=== PATIENT | female | born 1960 | race Caucasian/White ===

== ENCOUNTER 2018-01-24 07:44 | Outpatient (CLI) | payer OTHER ==
[~2018-01-24 07:44] MED LIST: BARIATRIC ADVANTAGE PO; CALC-1050 PO; CYAN100087 SL; DIPH25CA83 PO; ERGO500014 PO; ESTR0.6261 PO; LOPE1TAB46 PO; LOSA100T28 PO; MULT-227 PO; OMEP-50 PO; OXYB5TAB82 PO; POTA20TA39 PO; PYRI100T2 PO; SOTA80TA69 PO
[2018-01-24 08:23] LABS: BASOPHILS % (AUTO) 0.4 % (0-1); EOSINOPHILS # (AUTO) 0.2 X10'3 (0-0.9); EOSINOPHILS % (AUTO) 2.9 % (0-6); HEMATOCRIT 40.7 % (35.0-45.0); HEMOGLOBIN 13.9 g/dl (12.0-16.0); LYMPHOCYTES # (AUTO) 1.3 X10'3 (1.1-4.8); LYMPHOCYTES % (AUTO) 23.9 % (21-51); MEAN CORPUSCULAR HEMOGLOBIN 32.8 PG (27.0-31.0); MEAN CORPUSCULAR HGB CONC 34.1 % (33.0-36.5); MEAN CORPUSCULAR VOLUME 96.2 FL (78-98); MEAN PLATELET VOLUME 8.1 FL (7.4-10.4); MONOCYTES # (AUTO) 0.4 X10'3 (0-0.9); MONOCYTES % (AUTO) 7.4 % (2-12); NEUTROPHILS # (AUTO) 3.7 X10'3 (1.8-7.7); NEUTROPHILS % (AUTO) 65.4 % (42-75); PLATELET COUNT 276 X10'3 (140-440); RED BLOOD COUNT 4.23 X10'6 (4.20-5.60); WHITE BLOOD COUNT 5.7 X10'3 (4.5-11.0)
[2018-01-24 08:51] LABS: ALANINE AMINOTRANSFERASE 53 U/L (12-78); ALBUMIN 3.5 G/DL (3.4-5.0); ALBUMIN/GLOBULIN RATIO 1.1 (1.1-1.5); ALKALINE PHOSPHATASE 82 IU/L (46-116); ANION GAP 10 (8-16); ASPARTATE AMINO TRANSFERASE 25 U/L (10-37); BLOOD UREA NITROGEN 11 MG/DL (7-18); BUN/CREATININE RATIO 14.7 (6.6-38.0); CALCIUM 8.9 MG/DL (8.5-10.1); CHLORIDE 112 MMOL/L (99-107); CHOL/HDL RATIO 2.7 (0.00-4.99); CHOLESTEROL 92 MG/DL (0-200); CREATININE 0.75 MG/DL (0.40-0.90); GLUCOSE 80 MG/DL (70-104); HDL CHOLESTEROL 34 MG/DL (35-60); LDL CHOLESTEROL 47 MG/DL (50-100); POTASSIUM 4.2 MMOL/L (3.5-5.1); SODIUM 143 MMOL/L (135-145); TOTAL CARBON DIOXIDE 20.7 MMOL/L (24-32); TOTAL PROTEIN 6.6 G/DL (6.4-8.2); TRIGLYCERIDES 61 MG/DL (20-135); eGFR 79 ML/MIN
[2018-01-24 09:09] LABS: BILIRUBIN,TOTAL 0.8 MG/DL (0.1-1.0)
[2018-01-25 09:32] LABS: VITAMIN D, 25-HYDROXY 63.5 ng/mL (30.0-100.0)
== END 2018-01-24 23:59 | disposition home or self-care (01) ==
LOC: LAB 07:44
PROVIDERS: ATTEND Specialist
DX: N20.9 Urinary calculus, unspecified (principal); E87.6 Hypokalemia; K90.89 Other intestinal malabsorption; Z98.84 Bariatric surgery status
CPT/HCPCS: 36415; 74018; 80053; 80061; 82306; 82607; 85025

== ENCOUNTER 2018-09-04 07:52 | Outpatient (CLI) | payer OTHER ==
[~2018-09-04 07:52] MED LIST changes: +LOSA100T15 PO; -LOSA100T28 PO; -SOTA80TA69 PO; +SOTA80TA73 PO
[2018-09-04 09:20] LABS: BASOPHILS % (AUTO) 0.6 % (0-1); EOSINOPHILS # (AUTO) 0.1 X10'3 (0-0.9); EOSINOPHILS % (AUTO) 2.3 % (0-6); HEMATOCRIT 42.7 % (35.0-45.0); HEMOGLOBIN 14.1 g/dl (12.0-16.0); LYMPHOCYTES # (AUTO) 1.7 X10'3 (1.1-4.8); LYMPHOCYTES % (AUTO) 32.2 % (21-51); MEAN CORPUSCULAR VOLUME 96.8 FL (78-98); MEAN PLATELET VOLUME 8.6 FL (7.4-10.4); MONOCYTES # (AUTO) 0.4 X10'3 (0-0.9); MONOCYTES % (AUTO) 6.9 % (2-12); PLATELET COUNT 307 X10'3 (140-440); RED BLOOD COUNT 4.41 X10'6 (4.20-5.60); RED CELL DISTRIBUTION WIDTH 13.6 % (11.5-14.5); WHITE BLOOD COUNT 5.2 X10'3 (4.5-11.0)
[2018-09-04 09:21] LABS: ALBUMIN 3.6 G/DL (3.4-5.0); ANION GAP 6 (8-16); BILIRUBIN,TOTAL 0.4 MG/DL (0.1-1.0); BLOOD UREA NITROGEN 15 MG/DL (7-18); BUN/CREATININE RATIO 17.6 (6.6-38.0); CHLORIDE 109 MMOL/L (99-107); CREATININE 0.85 MG/DL (0.40-0.90); GLUCOSE 85 MG/DL (70-104); POTASSIUM 4.2 MMOL/L (3.5-5.1); SODIUM 144 MMOL/L (135-145); TOTAL CARBON DIOXIDE 28.8 MMOL/L (24-32); eGFR 68 ML/MIN
[2018-09-04 09:22] LABS: ALANINE AMINOTRANSFERASE 32 U/L (12-78); ALBUMIN/GLOBULIN RATIO 1.1 (1.1-1.5); ALKALINE PHOSPHATASE 74 IU/L (46-116); ASPARTATE AMINO TRANSFERASE 22 U/L (10-37)
[2018-09-05 05:24] LABS: VITAMIN D, 25-HYDROXY 66.6 ng/mL (30.0-100.0)
== END 2018-09-04 23:59 | disposition home or self-care (01) ==
LOC: LAB 07:52
PROVIDERS: ATTEND Specialist
DX: I10 Essential (primary) hypertension (principal); E55.9 Vitamin D deficiency, unspecified; K90.89 Other intestinal malabsorption; E87.6 Hypokalemia
CPT/HCPCS: 36415; 80053; 82306; 82607; 85025

== ENCOUNTER 2018-12-11 09:24 | Outpatient (CLI) | payer OTHER ==
[~2018-12-11 09:24] MED LIST changes: -LOSA100T15 PO; +LOSA100T57 PO
== END 2018-12-11 23:59 | disposition home or self-care (01) ==
LOC: CARD DIAG 09:24
PROVIDERS: ATTEND Internal Medicine Cardiovascular Disease
DX: I08.1 Rheumatic disorders of both mitral and tricuspid valves (principal); I48.91 Unspecified atrial fibrillation; I10 Essential (primary) hypertension; Z98.890 Other specified postprocedural states; Z88.0 Allergy status to penicillin; Z88.5 Allergy status to narcotic agent; Z91.040 Latex allergy status
CPT/HCPCS: 93306

== ENCOUNTER 2019-04-22 14:29 | Inpatient (IN) | payer OTHER ==
[~2019-04-22] VITALS: Ht 167.6 cm; Wt 72.7 kg
[2019-04-22] MEDS ORDERED: ondansetron/PF 4mg/2ml inj IV ONE (14:45)
[2019-04-22] MEDS ORDERED: normal saline 1000ML IV soln IVB ONE ×2 (14:45→18:10)
[2019-04-22] MEDS ORDERED: ketorolac trometh. 30mg/ml inj. IV ONE (14:45)
[2019-04-22] MEDS: morphine 4 MG/ML inj SYRINge IV PRN ×2 (15:03→17:07)
[2019-04-22 15:09] LABS: BASOPHILS # (AUTO) 0.1 X10'3 (0-0.2); BASOPHILS % (AUTO) 1.1 % (0-1); EOSINOPHILS # (AUTO) 0.1 X10'3 (0-0.9); HEMATOCRIT 43.5 % (35.0-45.0); HEMOGLOBIN 14.5 g/dl (12.0-16.0); LYMPHOCYTES # (AUTO) 2.3 X10'3 (1.1-4.8); LYMPHOCYTES % (AUTO) 39.6 % (21-51); MEAN CORPUSCULAR HEMOGLOBIN 32.7 PG (27.0-31.0); MEAN CORPUSCULAR HGB CONC 33.3 g/dL (33.0-36.5); MEAN CORPUSCULAR VOLUME 98.1 FL (78-98); MEAN PLATELET VOLUME 8.3 FL (7.4-10.4); MONOCYTES # (AUTO) 0.4 X10'3 (0-0.9); MONOCYTES % (AUTO) 6.8 % (2-12); NEUTROPHILS # (AUTO) 2.9 X10'3 (1.8-7.7); NEUTROPHILS % (AUTO) 50.5 % (42-75); PLATELET COUNT 272 X10'3 (140-440); RED BLOOD COUNT 4.43 X10'6 (4.20-5.60); RED CELL DISTRIBUTION WIDTH 13.3 % (11.5-14.5); WHITE BLOOD COUNT 5.8 X10'3 (4.5-11.0)
[2019-04-22 15:23] LABS: ALANINE AMINOTRANSFERASE 33 U/L (12-78); ALBUMIN 3.6 G/DL (3.4-5.0); ALKALINE PHOSPHATASE 80 IU/L (46-116); ANION GAP 10 (8-16); ASPARTATE AMINO TRANSFERASE 20 U/L (10-37); BILIRUBIN,TOTAL 0.4 MG/DL (0.1-1.0); BLOOD UREA NITROGEN 13 MG/DL (7-18); BUN/CREATININE RATIO 15.9 (6.6-38.0); CALCIUM 9.1 MG/DL (8.5-10.1); CHLORIDE 111 MMOL/L (99-107); CREATININE 0.82 MG/DL (0.40-0.90); GLUCOSE 120 MG/DL (70-104); LIPASE 234 U/L (73-393); POTASSIUM 3.9 MMOL/L (3.5-5.1); SODIUM 144 MMOL/L (135-145); TOTAL CARBON DIOXIDE 22.8 MMOL/L (24-32); TOTAL PROTEIN 7.1 G/DL (6.4-8.2); eGFR 71 ML/MIN
[2019-04-22] MEDS ORDERED: normal saline 1000ml 1,000 ML IV ONE (16:30)
[2019-04-22 18:59] LABS: CLARITY,URINE SLIGHTLY CLOUDY (Clear); COLOR,URINE YELLOW (Yellow); GLUCOSE, URINE NEGATIVE (Neg); KETONES,URINE NEGATIVE (Neg); LEUKOCYTE ESTERASE ,URINE SMALL (Neg); NITRITES, URINE NEGATIVE (Neg); OCCULT BLOOD,URINE MODERATE (Neg); PH,URINE 5.5 (4.8-8.0); PROTEIN,URINE 30 mg/dl (Neg); UROBILINOGEN,URINE 0.2 E.U/dL (0.2-1.0)
[2019-04-22 19:01] LABS: UA COLLECTION TYPE STRAIGHT CATH
[2019-04-22 19:05] LABS: BACTERIA,URINE 3+ /HPF (Neg); MUCUS STRANDS NONE SEEN /LPF (Neg); RBC,URINE 20-50 /HPF (0-2); RENAL CELLS, URINE FEW /HPF; SQUAMOUS EPITHELIAL CELL,UR NONE SEEN /LPF (FEW); TRANSITIONAL EPI CELLS,URINE FEW /HPF; WBC,URINE 50-100 /HPF (0-4)
[2019-04-22] MEDS ORDERED: CefTRIAXone/D5W-Rocephin 1gm 50 ML IV ONE (19:20)
[2019-04-22] MEDS ORDERED: magnesium 4gm in 100ml NS 100 ML IV PRN (19:50)
[2019-04-22] MEDS ORDERED: cyanocobalamin 500mcg tablet PO SCH (19:50)
[2019-04-22] MEDS ORDERED: HYDROmorphone inj. 0.5 MG/0.5 ML DISP.SYRIN IV PRN (19:50)
[2019-04-22] MEDS ORDERED: docusate sod 100mg capsule PO PRN (19:50)
[2019-04-22] MEDS ORDERED: mag hydrox/Alum hydrox/simeth 30ml oral suspension PO PRN (19:50)
[2019-04-22] MEDS ORDERED: potassium Cl 20 mEq SR tablet PO PRN ×2 (19:50)
[2019-04-22] MEDS ORDERED: potassium CL 10mEq/100ml bag 100 ML IV PRN ×2 (19:50)
[2019-04-22] MEDS ORDERED: acetaminophen 325mg tablet PO PRN (19:50)
[2019-04-22] MEDS ORDERED: magnesium 2GM in 50ml NS 50 ML IV PRN (19:50)
[2019-04-22] MEDS ORDERED: ondansetron/PF 4mg/2ml inj IV PRN (19:50)
[2019-04-22] MEDS ORDERED: diphenhydrAMINE 25mg capsule PO SCH (21:00)
[2019-04-22] MEDS: calcium carbonate/vitamin D3 tablet PO SCH (21:00)
[2019-04-22] MEDS: normal saline 1000ml 1,000 ML IV SCH (21:17)
--- NOTE | 2019-04-22 21:58 | NUR ---
Received report from Marium in ER. Pt arrived on the unit at approximately 2230 via gurney. VSS were stable, NS @100. Pt was placed on tele, given Zofran fro nausea and Dilaudid for pain. Will continue to monitor.
[2019-04-22 22:40] VITALS: BP 137/98
[2019-04-22] MEDS: HYDROmorphone 1 mg/ml syringe IV PRN (23:05)
[2019-04-23] MEDS: HYDROmorphone 1 mg/ml syringe IV PRN (05:20)
[2019-04-23] MEDS: normal saline 1000ml 1,000 ML IV SCH (05:49)
[2019-04-23 06:00] VITALS: BP 136/58
--- NOTE | 2019-04-23 06:00 | NUR ---
Report received from JEN Wilks
[2019-04-23 06:11] LABS: BASOPHILS % (AUTO) 0.4 % (0-1); EOSINOPHILS % (AUTO) 0.2 % (0-6); HEMATOCRIT 36.8 % (35.0-45.0); HEMOGLOBIN 12.6 g/dl (12.0-16.0); LYMPHOCYTES # (AUTO) 1.5 X10'3 (1.1-4.8); LYMPHOCYTES % (AUTO) 25.9 % (21-51); MEAN CORPUSCULAR HEMOGLOBIN 33.7 PG (27.0-31.0); MEAN CORPUSCULAR HGB CONC 34.3 g/dL (33.0-36.5); MEAN CORPUSCULAR VOLUME 98.1 FL (78-98); MEAN PLATELET VOLUME 8.4 FL (7.4-10.4); MONOCYTES # (AUTO) 0.7 X10'3 (0-0.9); MONOCYTES % (AUTO) 11.3 % (2-12); NEUTROPHILS # (AUTO) 3.7 X10'3 (1.8-7.7); NEUTROPHILS % (AUTO) 62.2 % (42-75); PLATELET COUNT 220 X10'3 (140-440); RED BLOOD COUNT 3.76 X10'6 (4.20-5.60); RED CELL DISTRIBUTION WIDTH 13.3 % (11.5-14.5); WHITE BLOOD COUNT 5.9 X10'3 (4.5-11.0)
--- NOTE | 2019-04-23 06:43 | NUR ---
Problems reprioritized. Patient report given, questions answered & plan of care reviewed with Audra LI.
[2019-04-23 07:06] LABS: ALANINE AMINOTRANSFERASE 81 U/L (12-78); ALBUMIN 2.7 G/DL (3.4-5.0); ALBUMIN/GLOBULIN RATIO 0.9 (1.1-1.5); ALKALINE PHOSPHATASE 71 IU/L (46-116); ANION GAP 9 (8-16); ASPARTATE AMINO TRANSFERASE 82 U/L (10-37); BILIRUBIN,TOTAL 0.6 MG/DL (0.1-1.0); BLOOD UREA NITROGEN 13 MG/DL (7-18); BUN/CREATININE RATIO 17.3 (6.6-38.0); CHLORIDE 114 MMOL/L (99-107); CREATININE 0.75 MG/DL (0.40-0.90); GLUCOSE 90 MG/DL (70-104); MAGNESIUM 1.6 MG/DL (1.5-2.4); SODIUM 146 MMOL/L (135-145); TOTAL CARBON DIOXIDE 22.7 MMOL/L (24-32); TOTAL PROTEIN 5.7 G/DL (6.4-8.2); eGFR 79 ML/MIN
[2019-04-23] MEDS: calcium carbonate/vitamin D3 tablet PO SCH ×2 (07:30→13:00)
[2019-04-23] MEDS ORDERED: pantoprazole 40mg Tablet.DR PO SCH (07:30)
[2019-04-23] MEDS ORDERED: enoxaparin 40mg/0.4ml syringe SQ SCH (08:00)
[2019-04-23] MEDS ORDERED: losartan 50mg tablet PO SCH (08:00)
[2019-04-23] MEDS ORDERED: K and/or MAG REPLACEMENT MC SCH (08:00)
[2019-04-23] MEDS ORDERED: multivitamins, therapeutics tablet PO SCH (08:00)
[2019-04-23] MEDS ORDERED: ergocalciferol (Vitamin D) 50,000 unit capsule PO SCH (08:00)
[2019-04-23] MEDS ORDERED: CefTRIAXone/D5W-Rocephin 1gm 50 ML IV SCH (08:00)
[2019-04-23] MEDS ORDERED: pyridoxine 50mg tablet PO SCH (08:00)
--- NOTE | 2019-04-23 09:16 | NUR ---
Spoke with Dr Mcgrath and received orders to discontinue tele monitoring. PCU easter bunny
[2019-04-23 10:00] VITALS: BP 126/61
[2019-04-23] MEDS ORDERED: CIPR-230 PO (11:30)
--- NOTE | 2019-04-23 13:31 | NUR ---
pt passed a stone; orders for DC after pt consumes a meal and ambulates. pt has ambulated, changed diet from NPO to regular diet, faxed order to dietary.
--- NOTE | 2019-04-23 15:00 | NUR ---
DISCHARGE: new Rx order delivered at bedside/([place]), pt ate lunch w/no reactions/passed kidney stone. Able to void w/o pain. Denies abd, bladder pain, CP. RR even unlabored. Denies SOB, N/V vertigo at DC. Pt able to ambulate independently. All DC documents signed as necessary and sent home w/pt. pt escorted KARSTEN accompanied by [facility] staff. pt ambulated. pt able to get into personal vehicle safely and drive away. pt thanked [facility] staff for her care.
== END 2019-04-23 15:05 | disposition home or self-care (01) | DRG 690 ==
LOC: ER 14:30 → ORTHO 4S 21:27 → CMPBEDREQ 23:25
PROVIDERS: ADMIT Family Medicine; ATTEND Internal Medicine
DX: N13.6 Pyonephrosis (principal); K91.2 Postsurgical malabsorption, not elsewhere classified; I10 Essential (primary) hypertension; I48.0 Paroxysmal atrial fibrillation; Z82.3 Family history of stroke; Z82.49 Family history of ischemic heart disease and other diseases of the circulatory system; Z87.442 Personal history of urinary calculi; Z90.710 Acquired absence of both cervix and uterus; Z98.84 Bariatric surgery status; Z88.0 Allergy status to penicillin; Z91.040 Latex allergy status; Z90.49 Acquired absence of other specified parts of digestive tract; Z79.899 Other long term (current) drug therapy
CPT/HCPCS: 36415; 74176; 80053; 81001; 83690; 83735; 85025; 87081; 87088; 96361; 96374; 96375; 99285; G0378; J0696; J1170; J1650; J1885; J2270; J2405; J7030; Q0163

== ENCOUNTER 2019-04-25 15:46 | Emergency (ER) | payer OTHER ==
[~2019-04-25] VITALS: Ht 162.6 cm; Wt 72.7 kg
[~2019-04-25 15:46] MED LIST changes: +CIPR-230 PO
[2019-04-25 17:23] LABS: BASOPHILS % (AUTO) 0.7 % (0-1); EOSINOPHILS # (AUTO) 0.1 X10'3 (0-0.9); EOSINOPHILS % (AUTO) 1.2 % (0-6); HEMATOCRIT 37.5 % (35.0-45.0); HEMOGLOBIN 12.6 g/dl (12.0-16.0); LYMPHOCYTES # (AUTO) 1.2 X10'3 (1.1-4.8); LYMPHOCYTES % (AUTO) 27.4 % (21-51); MEAN CORPUSCULAR HGB CONC 33.7 g/dL (33.0-36.5); MEAN CORPUSCULAR VOLUME 98.1 FL (78-98); MEAN PLATELET VOLUME 8.6 FL (7.4-10.4); MONOCYTES # (AUTO) 0.5 X10'3 (0-0.9); MONOCYTES % (AUTO) 11.2 % (2-12); NEUTROPHILS # (AUTO) 2.7 X10'3 (1.8-7.7); NEUTROPHILS % (AUTO) 59.5 % (42-75); PLATELET COUNT 217 X10'3 (140-440); RED BLOOD COUNT 3.82 X10'6 (4.20-5.60); RED CELL DISTRIBUTION WIDTH 13.5 % (11.5-14.5); WHITE BLOOD COUNT 4.5 X10'3 (4.5-11.0)
[2019-04-25 17:43] LABS: ALANINE AMINOTRANSFERASE 57 U/L (12-78); ALBUMIN 3.2 G/DL (3.4-5.0); ALKALINE PHOSPHATASE 80 IU/L (46-116); ANION GAP 9 (8-16); ASPARTATE AMINO TRANSFERASE 29 U/L (10-37); BILIRUBIN,TOTAL 0.2 MG/DL (0.1-1.0); BLOOD UREA NITROGEN 11 MG/DL (7-18); BUN/CREATININE RATIO 12.4 (6.6-38.0); CHLORIDE 115 MMOL/L (99-107); CREATININE 0.89 MG/DL (0.40-0.90); GLUCOSE 94 MG/DL (70-104); LIPASE 140 U/L (73-393); POTASSIUM 3.7 MMOL/L (3.5-5.1); SODIUM 146 MMOL/L (135-145); TOTAL CARBON DIOXIDE 21.6 MMOL/L (24-32); TOTAL PROTEIN 6.5 G/DL (6.4-8.2); eGFR 65 ML/MIN
[2019-04-25 17:52] VITALS: BP 151/75
[2019-04-25 18:15] LABS: CLARITY,URINE CLOUDY (Clear); COLOR,URINE YELLOW (Yellow); GLUCOSE, URINE NEGATIVE (Neg); KETONES,URINE NEGATIVE (Neg); LEUKOCYTE ESTERASE ,URINE MODERATE (Neg); NITRITES, URINE POSITIVE (Neg); OCCULT BLOOD,URINE MODERATE (Neg); PROTEIN,URINE 100 mg/dl (Neg); UROBILINOGEN,URINE 0.2 E.U/dL (0.2-1.0)
[2019-04-25 18:24] LABS: UA COLLECTION TYPE CLN CATCH MIDSTREAM
[2019-04-25 18:26] LABS: BACTERIA,URINE 3+ /HPF (Neg); MUCUS STRANDS MODERATE /LPF (Neg); SQUAMOUS EPITHELIAL CELL,UR MODERATE /LPF (FEW); WBC,URINE TNTC /HPF (0-4)
[2019-04-25 18:27] LABS: CAL OXALATE CRYSTALS 1+ /HPF (NEGATIVE); YEAST FEW /HPF (NEGATIVE)
== END 2019-04-25 18:41 | disposition home or self-care (01) ==
LOC: ER 15:47
DX: N20.0 Calculus of kidney (principal); Z87.442 Personal history of urinary calculi; I48.91 Unspecified atrial fibrillation; I10 Essential (primary) hypertension; Z90.49 Acquired absence of other specified parts of digestive tract; Z90.710 Acquired absence of both cervix and uterus; Z88.0 Allergy status to penicillin; Z91.040 Latex allergy status; Z79.899 Other long term (current) drug therapy
CPT/HCPCS: 36415; 80053; 81001; 83690; 85025; 85610; 87077; 87088; 99283; 99284

== ENCOUNTER 2019-09-05 08:46 | Day surgery (SDC) | payer OTHER ==
[~2019-09-05] VITALS: Ht 162.6 cm; Wt 72.7 kg
[~2019-09-05 08:46] MED LIST changes: -BARIATRIC ADVANTAGE PO; -CIPR-230 PO; -ESTR0.6261 PO; -LOPE1TAB46 PO; -OXYB5TAB82 PO; -PYRI100T2 PO; +PYRI100T4 PO
[2019-09-05 09:00] VITALS: BP 139/73
[2019-09-05] MEDS ORDERED: POTA20TA34 PO (09:03)
[2019-09-05] MEDS ORDERED: PHYT100T PO (09:05)
[2019-09-05] MEDS ORDERED: fentaNYL/PF 50MCG/1 ML 2ML syringe ONE (09:28)
[2019-09-05] MEDS ORDERED: MIDAZolam 5mg/5ml vial ONE (09:28)
[2019-09-05 10:29] VITALS: BP 115/64
[2019-09-05 10:39] VITALS: BP 109/63
[2019-09-05 10:49] VITALS: BP 122/65
[2019-09-05 10:59] VITALS: BP 131/73
== END 2019-09-05 11:05 | disposition home or self-care (01) ==
LOC: GI LAB 08:46
PROVIDERS: ATTEND Internal Medicine Gastroenterology
DX: Z12.11 Encounter for screening for malignant neoplasm of colon (principal); D12.8 Benign neoplasm of rectum; Z79.899 Other long term (current) drug therapy
CPT/HCPCS: 45380; 99152; J2250; J3010; J7040; 99153; A4620

== ENCOUNTER 2019-09-10 08:26 | Outpatient (CLI) | payer OTHER ==
[~2019-09-10 08:26] MED LIST changes: +PHYT100T PO; +POTA20TA34 PO
[2019-09-10 09:06] LABS: BASOPHILS # (AUTO) 0.1 X10'3 (0-0.2); BASOPHILS % (AUTO) 1.1 % (0-1); EOSINOPHILS # (AUTO) 0.1 X10'3 (0-0.9); EOSINOPHILS % (AUTO) 2.5 % (0-6); HEMATOCRIT 40.4 % (35.0-45.0); HEMOGLOBIN 14.1 g/dl (12.0-16.0); LYMPHOCYTES # (AUTO) 2.1 X10'3 (1.1-4.8); LYMPHOCYTES % (AUTO) 39.2 % (21-51); MEAN CORPUSCULAR HEMOGLOBIN 33.5 PG (27.0-31.0); MEAN CORPUSCULAR HGB CONC 34.8 g/dL (33.0-36.5); MEAN CORPUSCULAR VOLUME 96.2 FL (78-98); MEAN PLATELET VOLUME 7.9 FL (7.4-10.4); MONOCYTES # (AUTO) 0.4 X10'3 (0-0.9); MONOCYTES % (AUTO) 8.3 % (2-12); NEUTROPHILS # (AUTO) 2.6 X10'3 (1.8-7.7); NEUTROPHILS % (AUTO) 48.9 % (42-75); PLATELET COUNT 293 X10'3 (140-440); RED CELL DISTRIBUTION WIDTH 13.3 % (11.5-14.5); WHITE BLOOD COUNT 5.4 X10'3 (4.5-11.0)
[2019-09-10 09:56] LABS: ALANINE AMINOTRANSFERASE 32 U/L (12-78); ALBUMIN 3.6 G/DL (3.4-5.0); ALKALINE PHOSPHATASE 80 IU/L (46-116); ANION GAP 7 (8-16); ASPARTATE AMINO TRANSFERASE 25 U/L (10-37); BILIRUBIN,TOTAL 0.4 MG/DL (0.1-1.0); BLOOD UREA NITROGEN 17 MG/DL (7-18); BUN/CREATININE RATIO 21.8 (6.6-38.0); CALCIUM 9.1 MG/DL (8.5-10.1); CHLORIDE 108 MMOL/L (99-107); CHOL/HDL RATIO 2.7 (0.00-4.99); CHOLESTEROL 131 MG/DL (0-200); CREATININE 0.78 MG/DL (0.40-0.90); FERRITIN 113 NG/ML (8-252); GLUCOSE 80 MG/DL (70-104); HDL CHOLESTEROL 48 MG/DL (35-60); LDL CHOLESTEROL 71 MG/DL (50-100); MAGNESIUM 1.7 MG/DL (1.5-2.4); POTASSIUM 4.3 MMOL/L (3.5-5.1); SODIUM 141 MMOL/L (135-145); TOTAL CARBON DIOXIDE 26.3 MMOL/L (24-32); TOTAL PROTEIN 7.1 G/DL (6.4-8.2); TRIGLYCERIDES 86 MG/DL (20-135); eGFR 75 ML/MIN
[2019-09-10 10:05] LABS: % IRON SATURATION 32 % (11-46); IRON 105 UG/DL (49-151); TOTAL IRON BINDING CAPACITY 330 UG/DL (259-388)
[2019-09-10 13:39] LABS: CLARITY,URINE SLIGHTLY CLOUDY (Clear); COLOR,URINE YELLOW (Yellow); GLUCOSE, URINE NEGATIVE (Neg); KETONES,URINE NEGATIVE (Neg); LEUKOCYTE ESTERASE ,URINE SMALL (Neg); NITRITES, URINE NEGATIVE (Neg); OCCULT BLOOD,URINE TRACE-INTACT (Neg); PH,URINE 5.5 (4.8-8.0); PROTEIN,URINE NEGATIVE (Neg); UROBILINOGEN,URINE 0.2 E.U/dL (0.2-1.0)
[2019-09-10 13:58] LABS: UA COLLECTION TYPE NON-SPECIFIED
[2019-09-10 14:00] LABS: SQUAMOUS EPITHELIAL CELL,UR MODERATE /LPF (FEW)
[2019-09-10 14:02] LABS: WBC,URINE 20-30 /HPF (0-4)
[2019-09-10 14:05] LABS: BACTERIA,URINE FEW /HPF (Neg); HYALINE CASTS 0-3 /LPF (NEGATIVE)
[2019-09-10 14:06] LABS: YEAST FEW /HPF (NEGATIVE)
[2019-09-10 14:07] LABS: CAL OXALATE CRYSTALS 4+ /HPF (NEGATIVE)
== END 2019-09-10 23:59 | disposition home or self-care (01) ==
LOC: LAB 08:26
PROVIDERS: ATTEND Family Medicine
DX: Z76.89 Persons encountering health services in other specified circumstances (principal); K91.2 Postsurgical malabsorption, not elsewhere classified; I48.21 Permanent atrial fibrillation
CPT/HCPCS: 36415; 80053; 80061; 81001; 82607; 82728; 82746; 83540; 83550; 83735; 84439; 84443; 85025

== ENCOUNTER 2020-05-06 15:33 | Outpatient (CLI) | payer BC ==
[~2020-05-06 15:33] MED LIST changes: -POTA20TA39 PO; -PYRI100T4 PO
== END 2020-05-06 23:59 | disposition home or self-care (01) ==
LOC: RAD 15:33
PROVIDERS: ATTEND Nurse Practitioner
DX: N28.89 Other specified disorders of kidney and ureter (principal)
CPT/HCPCS: 74018

== ENCOUNTER 2020-06-16 08:19 | Outpatient (CLI) | payer BC ==
[2020-06-16 09:15] LABS: BASOPHILS # (AUTO) 0.1 X10'3 (0-0.2); BASOPHILS % (AUTO) 1.1 % (0-1); EOSINOPHILS # (AUTO) 0.1 X10'3 (0-0.9); EOSINOPHILS % (AUTO) 2.2 % (0-6); HEMATOCRIT 42.5 % (35.0-45.0); HEMOGLOBIN 14.3 g/dl (12.0-16.0); LYMPHOCYTES # (AUTO) 1.9 X10'3 (1.1-4.8); LYMPHOCYTES % (AUTO) 34.1 % (21-51); MEAN CORPUSCULAR HGB CONC 33.6 g/dL (33.0-36.5); MEAN CORPUSCULAR VOLUME 98.1 FL (78-98); MEAN PLATELET VOLUME 8.5 FL (7.4-10.4); MONOCYTES # (AUTO) 0.4 X10'3 (0-0.9); MONOCYTES % (AUTO) 6.7 % (2-12); NEUTROPHILS # (AUTO) 3.1 X10'3 (1.8-7.7); NEUTROPHILS % (AUTO) 55.9 % (42-75); PLATELET COUNT 289 X10'3 (140-440); RED BLOOD COUNT 4.33 X10'6 (4.20-5.60); RED CELL DISTRIBUTION WIDTH 13.5 % (11.5-14.5); WHITE BLOOD COUNT 5.5 X10'3 (4.5-11.0)
[2020-06-16 09:34] LABS: ALANINE AMINOTRANSFERASE 35 U/L (12-78); ALBUMIN 3.8 G/DL (3.4-5.0); ALKALINE PHOSPHATASE 81 IU/L (46-116); ANION GAP 8 (8-16); ASPARTATE AMINO TRANSFERASE 26 U/L (10-37); BILIRUBIN,TOTAL 0.6 MG/DL (0.1-1.0); BLOOD UREA NITROGEN 19 MG/DL (7-18); BUN/CREATININE RATIO 21.8 (6.6-38.0); CALCIUM 9.6 MG/DL (8.5-10.1); CHLORIDE 108 MMOL/L (99-107); CHOL/HDL RATIO 2.4 (0.00-4.99); CHOLESTEROL 122 MG/DL (0-200); CREATININE 0.87 MG/DL (0.40-0.90); FERRITIN 187 NG/ML (8-252); GLUCOSE 77 MG/DL (70-104); HDL CHOLESTEROL 51 MG/DL (35-60); LDL CHOLESTEROL 62 MG/DL (50-100); POTASSIUM 4.3 MMOL/L (3.5-5.1); SODIUM 144 MMOL/L (135-145); TOTAL CARBON DIOXIDE 28.1 MMOL/L (24-32); TOTAL PROTEIN 7.5 G/DL (6.4-8.2); TRIGLYCERIDES 99 MG/DL (20-135); eGFR 66 ML/MIN
[2020-06-16 10:17] LABS: % IRON SATURATION 44 % (11-46); IRON 144 UG/DL (49-151); TOTAL IRON BINDING CAPACITY 326 UG/DL (259-388)
== END 2020-06-16 23:59 | disposition home or self-care (01) ==
LOC: LAB 08:19
PROVIDERS: ATTEND Family Medicine
DX: I48.20 Chronic atrial fibrillation, unspecified (principal); K91.2 Postsurgical malabsorption, not elsewhere classified; Z00.00 Encounter for general adult medical examination without abnormal findings
CPT/HCPCS: 36415; 80053; 80061; 82306; 82607; 82728; 82746; 83540; 83550; 83735; 84439; 84443; 85025

== ENCOUNTER 2020-07-02 11:40 | Inpatient (IN) | payer BC ==
[~2020-07-02] VITALS: Ht 165.1 cm; Wt 68.2 kg
[2020-07-02] VITALS (11 sets, daily range): BP systolic 111–148; BP diastolic 42–68
[2020-07-02] MEDS ORDERED: ondansetron/PF 4mg/2ml inj IV ONE (12:10)
[2020-07-02] MEDS ORDERED: normal saline 1000ML IV soln IVB ONE (12:10)
[2020-07-02] MEDS ORDERED: ketorolac trometh. 30mg/ml inj. IV ONE (12:10)
[2020-07-02 12:26] LABS: BASOPHILS % (AUTO) 0.2 % (0-1); EOSINOPHILS % (AUTO) 0.2 % (0-6); HEMATOCRIT 41.4 % (35.0-45.0); LYMPHOCYTES # (AUTO) 0.7 X10'3 (1.1-4.8); LYMPHOCYTES % (AUTO) 7.1 % (21-51); MEAN CORPUSCULAR HEMOGLOBIN 32.6 PG (27.0-31.0); MEAN CORPUSCULAR HGB CONC 33.8 g/dL (33.0-36.5); MEAN CORPUSCULAR VOLUME 96.6 FL (78-98); MEAN PLATELET VOLUME 8.2 FL (7.4-10.4); MONOCYTES # (AUTO) 0.8 X10'3 (0-0.9); MONOCYTES % (AUTO) 8.3 % (2-12); NEUTROPHILS # (AUTO) 7.9 X10'3 (1.8-7.7); NEUTROPHILS % (AUTO) 84.2 % (42-75); PLATELET COUNT 245 X10'3 (140-440); RED BLOOD COUNT 4.29 X10'6 (4.20-5.60); RED CELL DISTRIBUTION WIDTH 13.5 % (11.5-14.5); WHITE BLOOD COUNT 9.4 X10'3 (4.5-11.0)
[2020-07-02 12:31] LABS: CLARITY,URINE CLOUDY (Clear); COLOR,URINE YELLOW (Yellow); GLUCOSE, URINE NEGATIVE (Neg); KETONES,URINE 15 mg/dl (Neg); LEUKOCYTE ESTERASE ,URINE MODERATE (Neg); NITRITES, URINE NEGATIVE (Neg); OCCULT BLOOD,URINE SMALL (Neg); PH,URINE 5.5 (4.8-8.0); PROTEIN,URINE TRACE mg/dl (Neg); UROBILINOGEN,URINE 0.2 E.U/dL (0.2-1.0)
[2020-07-02 12:34] LABS: UA COLLECTION TYPE NON-SPECIFIED
[2020-07-02 12:37] LABS: ALANINE AMINOTRANSFERASE 119 U/L (12-78); ALBUMIN 3.7 G/DL (3.4-5.0); ALBUMIN/GLOBULIN RATIO 1.1 (1.1-1.5); ALKALINE PHOSPHATASE 96 IU/L (46-116); ANION GAP 7 (8-16); ASPARTATE AMINO TRANSFERASE 91 U/L (10-37); BLOOD UREA NITROGEN 22 MG/DL (7-18); BUN/CREATININE RATIO 15.6 (6.6-38.0); CALCIUM 9.6 MG/DL (8.5-10.1); CHLORIDE 104 MMOL/L (99-107); CREATININE 1.41 MG/DL (0.40-0.90); GLUCOSE 103 MG/DL (70-104); LIPASE 73 U/L (73-393); POTASSIUM 4.5 MMOL/L (3.5-5.1); SODIUM 136 MMOL/L (135-145); TOTAL CARBON DIOXIDE 25.4 MMOL/L (24-32); TOTAL PROTEIN 7.1 G/DL (6.4-8.2); eGFR 38 ML/MIN
[2020-07-02 12:38] LABS: SQUAMOUS EPITHELIAL CELL,UR FEW /LPF (FEW)
[2020-07-02 12:39] LABS: WBC,URINE TNTC /HPF (0-4)
[2020-07-02 12:41] LABS: BACTERIA,URINE FEW /HPF (Neg)
[2020-07-02 12:42] LABS: YEAST FEW /HPF (NEGATIVE)
[2020-07-02 12:43] LABS: TRANSITIONAL EPI CELLS,URINE FEW /HPF; WBC CLUMPS,URINE MODERATE /HPF (NEGATIVE)
[2020-07-02] MEDS ORDERED: levoFLOXACIN-Levaquin 500mg/D5 100 ML IV ONE (13:05)
[2020-07-02] MEDS ORDERED: mag hydrox/Alum hydrox/simeth 30ml oral suspension PO PRN (13:25)
[2020-07-02] MEDS ORDERED: magnesium hydroxide 30ml (MOM) UD suspension PO PRN (13:25)
[2020-07-02] MEDS ORDERED: ondansetron/PF 4mg/2ml inj IV PRN ×2 (13:25→17:15)
[2020-07-02] MEDS ORDERED: morphine 2 MG/ML inj. syringe IV PRN ×3 (13:25→17:15)
[2020-07-02] MEDS ORDERED: acetaminophen 325mg tablet PO PRN (13:25)
--- NOTE | 2020-07-02 13:52 | NUR ---
PLACED PT ON MONITOR DUE TO LEVOFLOXIN AND SOTOLOL AND LOSARTIN
[2020-07-02] MEDS: normal saline 1000ml 1,000 ML IV SCH ×2 (14:06→20:58)
--- NOTE | 2020-07-02 16:14 | NUR ---
bELONGINGS: $57 HARRIS (2/S$20;3X$5,2X$1) LOCKED UP W/ REGISTRATION. gLASSES, HEARING AID BILATERAL, TSHIRT, VRA, UNDIES JEANS, SOCKS, SNEAKERS, SWEATSHIRT, PHONE & DENTAL RECEPTIONIST.
[2020-07-02] MEDS ORDERED: iohexol 300 MG/1 ML 50ml polymer ONE (17:06)
[2020-07-02] MEDS ORDERED: ringers solution, lacted 1,000 ML IV SCH (17:15)
[2020-07-02] MEDS ORDERED: proCHLORperazine 10 MG/2 ml inj IV PRN (17:15)
[2020-07-02] MEDS ORDERED: morphine 4 MG/ML inj SYRINge IV PRN (17:15)
[2020-07-02] MEDS ORDERED: meperidine/PF 25mg/ml syringe IV PRN ×3 (17:15)
--- NOTE | 2020-07-02 17:15 | NUR ---
Received report from ER nurse. Pt. was transferred to surgical room while this primary RN on break. Charge and student RN prepared pt. for stent procedure while this pt. cared for another pt.'s (post-op) urgent needs. BG, STAT EKG taken before pt. left. Working IV in LFA 20 G. Pt. aware of procedure and prepared. No time was allowed for this primary RN to complete a full physical assessment. Per ER nurse pt. urine output was only what she used for a urine sample and pt. has not voided on surgical. Unknown BM. Pt. alert and oriented. Taken down to OR to possibly have ureter stone removed and/or a stent placed by MD Shilpa Patino.
[2020-07-02] MEDS ORDERED: fentaNYL/PF 50MCG/1 ML 2ML syringe ONE (18:03)
[2020-07-02] MEDS ORDERED: midazolam 2 mg/2 ml injection ONE (18:03)
[2020-07-02] MEDS ORDERED: propofol inj 20 ML IV ONE (18:04)
--- NOTE | 2020-07-02 18:46 | NUR ---
Gave report to Ekaterina LI. Pt. is not currently in her room as she is in a procedure with MD Patino.
[2020-07-02] MEDS ORDERED: ceFAZolin 1000mg inj ONE (18:49)
[2020-07-02] MEDS ORDERED: normal saline 1000ml 1,000 ML IV ONE (19:35)
--- NOTE | 2020-07-02 19:38 | NUR ---
Received from OR via SURGICAL BED , accompanied by Anesthesiologist FAN and report given by Anesthesiolgist. PATIENT WITH 20GPIV IN LEFT UE RUNNING LR AT 100. RICK PAIN AT THIS TIME. VSS. 10L MASK ON WITH 100% SATURATIONS. SCDS DONNED. Addendum: 07/02/20 at 194 by Shayne Ding RN, RN Amended: Links added.
--- NOTE | 2020-07-02 20:06 | NUR ---
I have received report from George LI in PACU and had the opportunity to ask questions. Patient is still in recovery and will be on the unit shortly.
--- NOTE | 2020-07-02 20:18 | NUR ---
Report called to receiving nurse. Transferred via SURGICAL BED WITH GLASSES ON Belongings. Special Issues communicated to receiving nurse YUE.RN.BED LOW CALL LIGHT PRESENT AND 3 RAILS UP. RN PRESENT TO ACCEPT CARE. PATIENT TALKATIVE AND DENIES ALL PAIN. CARE TURNED OVER TO JEN TURNER. Addendum: 07/02/20 at 2027 by Shayne Ding RN, RN Amended: Links added.
--- NOTE | 2020-07-02 20:18 | NUR ---
Report called to receiving nurse. Transferred via SURGICAL BED WITH GLASSES ON ONLY. NO OTHER Belongings . Special Issues communicated to receiving nurse PRUDENCE RN.PATIENT ALERT AND TALKATIVE. DENIES PAIN. VSS. 3 RAILS UP, CALL LIGHT IN HAND AND PATIENT WITH NO C.O. AT THIS TIME.
[2020-07-02] MEDS ORDERED: tamsulosin 0.4mg capsule PO SCH (21:00)
--- NOTE | 2020-07-02 21:16 | NUR ---
patient just came back from OR. Addendum: 07/02/20 at 2117 by Ekaterina Franklin RN Amended: Links added.
[2020-07-03] VITALS: BP 140/70
[2020-07-03 00:15] VITALS: BP 140/70
[2020-07-03 04:46] VITALS: BP 156/63
[2020-07-03 05:31] LABS: BASOPHILS % (AUTO) 0.2 % (0-1); EOSINOPHILS % (AUTO) 0.3 % (0-6); HEMATOCRIT 36.8 % (35.0-45.0); HEMOGLOBIN 12.6 g/dl (12.0-16.0); LYMPHOCYTES # (AUTO) 0.4 X10'3 (1.1-4.8); LYMPHOCYTES % (AUTO) 9.3 % (21-51); MEAN CORPUSCULAR HEMOGLOBIN 33.6 PG (27.0-31.0); MEAN CORPUSCULAR HGB CONC 34.2 g/dL (33.0-36.5); MEAN CORPUSCULAR VOLUME 98.4 FL (78-98); MEAN PLATELET VOLUME 8.8 FL (7.4-10.4); MONOCYTES # (AUTO) 0.3 X10'3 (0-0.9); MONOCYTES % (AUTO) 7.3 % (2-12); NEUTROPHILS # (AUTO) 3.9 X10'3 (1.8-7.7); NEUTROPHILS % (AUTO) 82.9 % (42-75); PLATELET COUNT 186 X10'3 (140-440); RED BLOOD COUNT 3.74 X10'6 (4.20-5.60); RED CELL DISTRIBUTION WIDTH 13.2 % (11.5-14.5); WHITE BLOOD COUNT 4.7 X10'3 (4.5-11.0)
[2020-07-03] MEDS: normal saline 1000ml 1,000 ML IV SCH (05:41)
[2020-07-03 06:14] LABS: ALBUMIN 2.7 G/DL (3.4-5.0); ANION GAP 12 (8-16); BLOOD UREA NITROGEN 18 MG/DL (7-18); BUN/CREATININE RATIO 15.9 (6.6-38.0); CHLORIDE 105 MMOL/L (99-107); CREATININE 1.13 MG/DL (0.40-0.90); GLUCOSE 69 MG/DL (70-104); POTASSIUM 3.6 MMOL/L (3.5-5.1); SODIUM 137 MMOL/L (135-145); eGFR 49 ML/MIN
[2020-07-03 08:00] VITALS: BP 113/54
[2020-07-03] MEDS ORDERED: levoFLOXACIN-Levaquin 500mg/D5 100 ML IV SCH (08:00)
[2020-07-03] MEDS ORDERED: normal saline 1000ml 1,000 ML IV ONE (08:30)
[2020-07-03] MEDS ORDERED: sotalol 80mg tablet PO ONE (10:45)
[2020-07-03 11:45] VITALS: BP 103/42
[2020-07-03] MEDS ORDERED: CIPR-230 PO (13:02)
[2020-07-03] MEDS ORDERED: HYDR-4353 PO (13:27)
[2020-07-03] MEDS ORDERED: LEVO500T89 PO (13:34)
[2020-07-03] MEDS ORDERED: FLO0.4C PO (13:34)
[2020-07-03] MEDS ORDERED: HYDR-4383 PO (13:34)
--- NOTE | 2020-07-03 14:20 | NUR ---
PT DISCHARGED IN STABLE CONDIITON. LEFT FACILITY IN PRIVATE VEHICLE WITH . IV DC CANULA INTACT. ALL BELONGINGS IN HAND INCLUDING RX FOR NORCO. FOLLOW UP INSTRUCTIONS GIVEN, ALL QUESTIONS ANSWERED. Addendum: 07/03/20 at 1524 by Shayla Crocker RN Amended: Links added.
[2020-07-03] MEDS ORDERED: sotalol 80mg tablet PO SCH (20:00)
[2020-07-04] MEDS ORDERED: pantoprazole 40mg Tablet.DR PO SCH (07:30)
[2020-07-04] MEDS ORDERED: POTASSIUM BICARB 20meq eff tab 20 MEQ TABLET.EFF PO SCH (08:00)
[2020-07-04] MEDS ORDERED: multivitamins, therapeutics tablet PO SCH (08:00)
[2020-07-04] MEDS ORDERED: losartan 50mg tablet PO SCH (08:00)
== END 2020-07-03 14:20 | disposition home or self-care (01) | DRG 660 ==
LOC: EEVIPCON 11:41 → ER 11:41 → ED HOLD 13:24 → SUR 3N 16:43
PROVIDERS: ADMIT Family Medicine; ATTEND Family Medicine
PROC: 0T778DZ Dilation of Left Ureter with Intraluminal Device, Via Natural or Artificial Opening Endoscopic (ICD-10-PCS; 2020-07-02)
PROC: BT1F1ZZ Fluoroscopy of Left Kidney, Ureter and Bladder using Low Osmolar Contrast (ICD-10-PCS; 2020-07-02)
PROC: 0TC78ZZ Extirpation of Matter from Left Ureter, Via Natural or Artificial Opening Endoscopic (ICD-10-PCS; principal; 2020-07-02 18:06)
DX: N10 Acute pyelonephritis (principal); N20.1 Calculus of ureter; I48.91 Unspecified atrial fibrillation; I10 Essential (primary) hypertension; I25.10 Atherosclerotic heart disease of native coronary artery without angina pectoris; Z88.0 Allergy status to penicillin; Z88.8 Allergy status to other drugs, medicaments and biological substances; Z90.49 Acquired absence of other specified parts of digestive tract; Z79.899 Other long term (current) drug therapy
CPT/HCPCS: 96365; 96375; 99285; Z7506; Z7508; 36415; 74176; 76000; 80048; 80053; 81001; 82948; 83690; 85025; 87081; 87088; A4618; C1758; C1769; C2617; G0378; J0690; J1885; J1956; J2250; J2405; J2704; J3010; J7030; J7120; Q9967

== ENCOUNTER 2020-07-29 09:44 | Outpatient (CLI) | payer BC ==
[~2020-07-29 09:44] MED LIST changes: -CALC-1050 PO; -CYAN100087 SL; -DIPH25CA83 PO; -ERGO500014 PO; +FLO0.4C PO; +HYDR-4383 PO; -PHYT100T PO
== END 2020-07-29 23:59 | disposition home or self-care (01) ==
LOC: 64 CT 09:44
PROVIDERS: ATTEND Family Medicine
DX: N20.0 Calculus of kidney (principal); N13.30 Unspecified hydronephrosis; M41.86 Other forms of scoliosis, lumbar region; M16.10 Unilateral primary osteoarthritis, unspecified hip; M47.819 Spondylosis without myelopathy or radiculopathy, site unspecified; D73.89 Other diseases of spleen
CPT/HCPCS: 74176